=== PATIENT | female | born 1960 | race Caucasian/White ===

== ENCOUNTER → 2017-04-03 | Outpatient (CLI) | payer BC | LOC: COL.CARD 03-27 09:00 | DX: G40.209 Localization-related (focal) (partial) symptomatic epilepsy and epileptic syndromes with complex partial seizures, not intractable, without status epilepticus (principal) ==

== ENCOUNTER → 2017-08-07 | Outpatient (CLI) | payer BC | LOC: COL.RAD 08:44 | DX: C49.9 Malignant neoplasm of connective and soft tissue, unspecified (principal) | CPT/HCPCS: A9503 ==

== ENCOUNTER → 2019-10-28 | Outpatient (CLI) | payer BC, MEDICARE | LOC: COL.CARD 10-18 10:00 | DX: G40.209 Localization-related (focal) (partial) symptomatic epilepsy and epileptic syndromes with complex partial seizures, not intractable, without status epilepticus (principal) ==

== ENCOUNTER → 2020-07-27 | Outpatient (CLI) | payer BC, MEDICARE | LOC: COL.RAD 13:32 | DX: M25.551 Pain in right hip (principal) | CPT/HCPCS: J3301; Q9967 ==